=== PATIENT | female | born 1960 ===

== ENCOUNTER 2018-06-15 15:28 | Emergency (ER) | payer OTHER ==
[2018-06-15 15:38] VITALS: BP 126/86
--- NOTE | 2018-06-15 15:49 | UC ---
UC General HPI - HPI Summary HPI Summary: 57 year old female patient presents with 1 day history of swelling to her left lower lip. States starte with slight swelling yesterday that increased over night. Today noted a white-colored lesion. Mildly sore to touch. Denies injury, history of cold sores, fever, chills, rash, swelling of tongue or throat, difficulty breathing, dysphagia, changes in cosmetics or other topical agents, dietary changes, known insect bites, or new medications. - History of Current Complaint Chief Complaint: UCGeneralIllness Stated Complaint: SWOLLEN LIP Time Seen by Provider: 06/15/18 15:40 Hx Obtained From: Patient Onset/Duration: Gradual Onset Onset Severity: Mild Current Severity: Mild Pain Intensity: 0 Associated Signs & Symptoms: Positive: Other - swelling tongue or throat, rash, dysphagia. Negative: Decreased Oral Intake, Fever, Recent Medication Changes, SOB, Trauma - Allergy/Home Medications Allergies/Adverse Reactions: Allergies Allergy/AdvReac Type Severity Reaction Status Date / Time No Known Allergies Allergy Verified 12/30/12 12:44 PMH/Surg Hx/FS Hx/Imm Hx - Additional Past Medical History Additional PMH: non-contributory Previously Healthy: Yes - Surgical History Surgical History: None - Family History Known Family History: Positive: Other - non-contributory - Social History Occupation: Employed Full-time Lives: With Family Alcohol Use: Weekly Substance Use Type: None Smoking Status (MU): Former Smoker Review of Systems Constitutional: Negative Skin: Negative ENT: Negative Respiratory: Negative Cardiovascular: Negative Is Patient Immunocompromised?: No All Other Systems Reviewed And Are Negative: Yes Physical Exam Triage Information Reviewed: Yes Appearance: Well-Appearing, No Pain Distress, Well-Nourished Vital Signs: Initial Vital Signs Temp 99.2 F 06/15/18 15:30 Pulse 86 06/15/18 15:30 Resp 16 06/15/18 15:30 BP 126/86 06/15/18 15:30 Pulse Ox 98 06/15/18 15:30 Vital Signs Reviewed: Yes ENT: Positive: Pharynx normal, Uvula midline, Other - Mild swelling of left lower lip with suprficial ulceration centrally. No other oral lesions noted. Dental Exam: Normal Neck exam: Normal Neck: Positive: Supple, Nontender, No Lymphadenopathy Respiratory Exam: Normal Course/Dx - Course Course Of Treatment: OTC Abreva according to directions. Prevention of transmission discussed. Patient verbalizes understanding and agrees with POC. - Differential Dx - Multi-Symptom Provider Diagnoses: Cold Sore Discharge - Sign-Out/Discharge Documenting (check all that apply): Patient Departure - Discharge Plan Condition: Stable Disposition: HOME Patient Education Materials: Oral Herpes Simplex Virus Infections (ED) Referrals: No Primary Care Phys,NOPCP [Primary Care Provider] - Additional Instructions: You may use over the counter Abreva according to directions to help shorten the duration and minimize symptoms. Avoid kissing, sharing cups, utensils, towels, or lip balms with others while you have a lesion to avoid transmission to others. Return or follow up with your primary care provider if no improvement after 1 week of treatment. Seek immediate medical attention if you develop fever greater than 100.5 F, have difficulty swallowing, difficulty breathing, or any worsening of symptoms. - Billing Disposition and Condition Condition: STABLE Disposition: Home
== END 2018-06-15 16:05 | disposition home or self-care (01) ==
LOC: UCEAST 15:28
DX: B00.1 Herpesviral vesicular dermatitis (principal); R13.10 Dysphagia, unspecified; Z87.891 Personal history of nicotine dependence
CPT/HCPCS: 99201; G0463